=== PATIENT | male | born 1975 | race Caucasian/White ===

== ENCOUNTER 2024-06-21 23:06 | Emergency (ER) | payer MEDICAID ==
[~2024-06-21] VITALS: Ht 172.7 cm; Wt 63.5 kg
[2024-06-21 23:08] VITALS: BP_DIAS 125; PULSE 113; RESP 20; O2SAT 98
[2024-06-22 01:03] LABS: BASOPHILS % 0.5 % (0.0-2.0); EOSINOPHILS % 0.8 % (0.0-5.0); HEMATOCRIT. 31.5 % (42.0-52.0); HEMOGLOBIN. 10.4 g/dL (14.0-18.0); LYMPHOCYTES % 19.3 % (20.0-50.0); MEAN CORPUSCULAR HEMOGLOBIN 28.6 pg (28.0-32.0); MEAN CORPUSCULAR VOLUME 86.7 fL (80.0-94.0); MEAN PLATELET VOLUME 8.1 fl (7.4-10.4); MONOCYTES % 7.6 % (2.0-8.0); NEUTROPHILS % 71.8 % (40.0-76.0); PLATELET 262 x1000/uL (130-400); RED BLOOD CELL COUNT 3.63 mill/uL (4.7-6.1); WHITE BLOOD COUNT 10.3 x1000/uL (4.5-11.0)
[2024-06-22 01:08] LABS: CARBON DIOXIDE 28 mEq/L (21-32); CHLORIDE 94 mEq/L (98-107); POTASSIUM 4.4 mEq/L (3.5-5.1); SODIUM 135 mEq/L (136-145)
[2024-06-22 01:09] LABS: CALCIUM 10.3 mg/dL (8.7-10.4)
[2024-06-22 01:14] LABS: GLUCOSE 259 mg/dL (70-105); UREA NITROGEN BLOOD 61 mg/dL (9-23)
[2024-06-22 01:23] LABS: CREATININE 8.8 mg/dL (0.6-1.3); TROPONIN I HIGH SENSITIVITY 141 ng/L (3.0-53)
[2024-06-22 01:50] VITALS: BP_SYST 191
[2024-06-22] MEDS: DIPHENHYDRAMINE 50MG/ML VIAL IV ONE (01:50)
[2024-06-22 01:57] LABS: PARTIAL THROMBOPLASTIN TIME 30.3 sec (23.4-31.0); PROTHROMBIN TIME 10.9 sec (9.6-11.0)
[2024-06-22] MEDS ORDERED: AZITHROMYCIN 500MG/250ML 250 ML IV SCH (04:00)
[2024-06-22] MEDS ORDERED: CEFTRIAXONE 2GM/50ML 50 ML IV ONE (04:00)
[2024-06-22] MEDS ORDERED: HYDRALAZINE 20MG/ML VIAL IV PRN (05:30)
[2024-06-22] MEDS ORDERED: ZOLPIDEM TARTRATE 5MG TABLET PO PRN (05:30)
[2024-06-22] MEDS ORDERED: ONDANSETRON HCL 4MG/2ML INJ IV PRN (05:30)
[2024-06-22] MEDS ORDERED: CLONIDINE 0.1MG TABLET PO PRN (05:30)
[2024-06-22] MEDS ORDERED: DIPHENHYDRAMINE 50MG/ML VIAL IV PRN (05:30)
[2024-06-22] MEDS ORDERED: ACETAMINOPHEN 325MG TABLET PO PRN ×2 (05:30)
[2024-06-22] MEDS ORDERED: SODIUM CHLORIDE 0.9% 3ML FLUSH IVF SCH (06:00)
== END 2024-06-22 17:27 | disposition home or self-care (01) ==
LOC: ER 23:06 → EDBEDREQTM 06-22 02:06 → EDBEDREQ 06-22 02:06 → CANBEDREQ 06-22 04:32 → ER 06-22 17:27
DX: I12.0 Hypertensive chronic kidney disease with stage 5 chronic kidney disease or end stage renal disease (principal); E11.22 Type 2 diabetes mellitus with diabetic chronic kidney disease; N18.6 End stage renal disease; I21.4 Non-ST elevation (NSTEMI) myocardial infarction
CPT/HCPCS: 99291; 80048; 85025; 85610; 85730; 84484; 36415; 96374; 71045; J1200; J0696